=== PATIENT | female | born 2000 | race Caucasian/White ===

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

== ENCOUNTER 2018-10-23 17:40 | Emergency (ER) | payer MEDICAID ==
[~2018-10-23] VITALS: Ht 154.9 cm; Wt 73.2 kg
[~2018-10-23 17:40] MED LIST changes: +IBUP-1542 PO
[2018-10-23 17:49] VITALS: BP 144/75; PULSE 87; RESP 18; Ht 154.9 cm; Wt 73.2 kg
== END 2018-10-23 21:06 | disposition home or self-care (01) ==
LOC: FTE 17:40
DX: O26.891 Other specified pregnancy related conditions, first trimester (principal); R10.2 Pelvic and perineal pain; Z3A.01 Less than 8 weeks gestation of pregnancy
CPT/HCPCS: 76801; 76817; 81003; 81025; 84702; 85025; Z7502